=== PATIENT | male | born 1995 | race Caucasian/White ===

== ENCOUNTER 2018-04-24 19:26 | Emergency (ER) | payer SELFPAY ==
[2018-04-24 19:44] VITALS: BP 121/50
--- NOTE | 2018-04-24 19:54 | UC ---
General HPI - HPI Summary HPI Summary: 1. tuesday, pt found a tick on his R side and removed it. area remains a little sore. had several ticks on him post hunting. wants tx to prevent Lyme disease. 2. runny nose, cough and sore throat from the coughing x 1 month. girlfriend had same but got better. pt's cough is not going away and pt reports sense of not well with the cough. pt does chew plus sprays foam for job. he does wear HIP[employer] filter. + SOB and wheezing at times. 3. Lump on R back for 3-4 years that at times is sore. - History of Current Complaint Chief Complaint: UCRespiratory Stated Complaint: TICK BITE Time Seen by Provider: 04/24/18 19:44 Hx Obtained From: Patient, Family/Bead Picker Onset/Duration: Gradual Onset Timing: Constant Pain Intensity: 0 Associated Signs & Symptoms: Positive: Cough, SOB, Wheezing, Other - malaise. Negative: Chest Pain, Diarrhea, Fever, Headache, Hemoptysis, Nausea, Vomiting - Allergy/Home Medications Allergies/Adverse Reactions: Allergies Allergy/AdvReac Type Severity Reaction Status Date / Time No Known Allergies Allergy Verified 04/24/18 19:40 PMH/Surg Hx/FS Hx/Imm Hx Previously Healthy: Yes - Surgical History Surgical History: None - Family History Known Family History: Positive: Non-Contributory - Social History Occupation: Employed Full-time Lives: With Family Alcohol Use: Weekly Substance Use Type: None Smoking Status (MU): Never Smoked Tobacco Review of Systems All Other Systems Reviewed And Are Negative: Yes Constitutional: Positive: Fatigue Skin: Positive: Other - lump on back, tick bite R side Eyes: Positive: Negative ENT: Positive: Sore Throat, Sinus Congestion Respiratory: Positive: Shortness Of Breath, Cough Cardiovascular: Positive: Negative Gastrointestinal: Positive: Negative Genitourinary: Positive: Negative Motor: Positive: Negative Neurovascular: Positive: Negative Musculoskeletal: Positive: Negative Neurological: Positive: Negative Psychological: Positive: Negative Is Patient Immunocompromised?: No Physical Exam Triage Information Reviewed: Yes Appearance: Well-Appearing Vital Signs: Initial Vital Signs Temp 97.7 F 04/24/18 19:40 Pulse 80 04/24/18 19:40 Resp 15 04/24/18 19:40 BP 121/50 04/24/18 19:40 Pulse Ox 97 04/24/18 19:40 Vital Signs Reviewed: Yes Eyes: Positive: Conjunctiva Clear ENT: Positive: Pharyngeal erythema - mild, TMs normal, Uvula midline. Negative : Nasal congestion, Nasal drainage, Tonsillar swelling, Tonsillar exudate, Trismus, Muffled voice, Hoarse voice, Sinus tenderness Neck: Positive: Supple, Nontender, No Lymphadenopathy Respiratory: Positive: Lungs clear, Normal breath sounds, No respiratory distress Cardiovascular: Positive: RRR, No Murmur Abdomen Description: Positive: Nontender, No Organomegaly, Soft. Negative: Distended, Guarding Bowel Sounds: Positive: Present Musculoskeletal: Positive: ROM Intact Neurological: Positive: Alert Psychological: Positive: Age Appropriate Behavior Skin Exam: Normal Skin: Positive: Rashes - red spot R side of trunk with central abrasion where tick removed. no bullseye. c/w local reaction to bite. Mid back just to R of spine is an approximate 3cm tissue mass that is somewhat fixed and non fluctuant. Diagnostics - Radiology No standard instances Radiology Interpretation Completed By: ED Physician - wet read=nad Course/Dx - Course Course Of Treatment: pt declined rapid strep screen because throat is only sore with coughing. pt advised of risk for oral CA from tobacco use plus he may have occupational exposure. need to f/u for sore throat and cough to resolution stressed to ensure not CA related. wet read on CXR is NAD. soft tisssue mass on back may be a cyst or lipoma; however, it feels fixed thus will refer to surgery for evaluation and tx. will tx with doxycycline to prevent lyme and cover lungs for presumptive bacterial component but again need for f/u to ensure resolution was stressed. - Diagnoses Provider Diagnosis: Tick bite of thoracic region, Soft tissue mass, Cough Discharge - Sign-Out/Discharge Documenting (check all that apply): Patient Departure All imaging exams completed and their final reports reviewed: No - Discharge Plan Condition: Stable Disposition: HOME Prescriptions: Albuterol HFA INHALER* [Ventolin HFA Inhaler*] 2 puff INH Q6H #1 mdi DOXYcycline CAP(*) [DOXYcycline 100MG CAP(*)] 100 mg PO BID 10 Days #20 cap Patient Education Materials: Tick Bite (ED), Acute Cough (ED), Soft Tissue Mass (ED) Referrals: NOAH Zamudio [Medical Doctor] - 7 Days [facility] [Provider Group] - As Soon As Possible Additional Instructions: FOLLOW UP [facility] FOR MASS (LUMP) ON BACK. - Billing Disposition and Condition Condition: STABLE Disposition: Home
== END 2018-04-24 20:39 | disposition home or self-care (01) ==
LOC: UCCORT 19:26
DX: T63.481A Toxic effect of venom of other arthropod, accidental (unintentional), initial encounter (principal); Y92.9 Unspecified place or not applicable; R22.2 Localized swelling, mass and lump, trunk; R05 Cough
CPT/HCPCS: 71046; 99202; G0463